=== PATIENT | male | born 1955 | race Caucasian/White ===

== ENCOUNTER 2021-06-25 17:04 | Outpatient (CLI) | payer BC, SELFPAY ==
--- NOTE | ~2021-06-25 | CT_ITS ---
EXAMINATION: CT diagnostic chest w con DATE: 06/25/2021 17:39 INDICATION: Shortness of breath TECHNIQUE: Computed tomography (CT) of the chest was performed with 75 CC Omnipaque 350 intravenous c ontrast. Automated exposure control and iterative reconstruction technique were employed. Exam dose: 234.19 mGy-cm total exam DLP. COMPARISON: None FINDINGS: Heart size is normal. Prominent coronary artery calcifications. No pericardial or pleural e ffusion. Aortic ectasia; the thoracic aortic arch measures 3.0 cm, upper limits of normal. No thoracic aortic dissection is evident. There are extensive increased reticular markings and cystic changes in the peripheral lung zones sugg esting usual interstitial pneumonia interstitial fibrosis. Superimposed interstitial pneumonitis or p neumonia is not excluded. There is mild bilateral hilar and mediastinal lymphadenopathy, likely reactive. There are 2 approximately 1.8 cm ill-defined hypoattenuating masses of the hepatic dome, and approxim ately 3 cm similar lesion of the lateral segment left hepatic lobe, of concern for possible metastase s. Diffuse idiopathic skeletal hyperostosis of the thoracic spine. Mild cupping of the superior vertebra l endplate of T4 consistent with compression fracture, likely old. No suspicious osteolytic or osteob lastic lesions are noted. IMPRESSION: Extensive reticular interstitial infiltrate or fibrosis and cystic changes with peripher al predilection, suggesting usual interstitial pneumonia interstitial fibrosis. Superimposed pneumoni a is not excluded. Recommend clinical correlation Bilateral hilar and mediastinal mild lymphadenopathy; this may be reactive. Differential diagnosis in cludes metastatic disease, lymphoma. 3 ill-defined approximately 1.8-3 cm hypoattenuating hepatic lesions, suggesting possible hepatic met astases Reviewed, dictated and finalized at [facility]. Reviewed, dictated and finalized at [facility]. OPATHIC DOCTOR IMPRESSION: Extensive reticular interstitial infiltrate or fibrosis and cystic changes with peripheral predilection, suggesting usual interstitial pneumonia interstitial fibrosis. Superimposed pneumonia is not excluded. Recommend clinic al correlation Bilateral hilar and mediastinal mild lymphadenopathy; this may be reactive. Dif ferential diagnosis includes metastatic disease, lymphoma. 3 ill-defined approximately 1.8-3 cm hypoattenuating hepatic lesions, suggestin g possible hepatic metastases
[2021-06-25 17:28] LABS: Estimated Glomerular Filt Rate > 60
== END 2021-06-25 17:05 | disposition home or self-care (01) ==
LOC: ANHIMG 17:05
PROVIDERS: PCP Internal Medicine; Visit Provider Nurse Practitioner Family
DX: R06.02 Shortness of breath (principal)
CPT/HCPCS: 71260; Q9967

== ENCOUNTER 2021-07-01 12:52 | Outpatient (CLI) | payer BC, SELFPAY ==
--- NOTE | ~2021-07-01 | CT_ITS ---
EXAMINATION: CT abdomen pelvis wo/w con EXAM DATE: 07/01/2021 13:22 INDICATION: Hepatic lesion. TECHNIQUE: Spiral CT of the abdomen and pelvis was performed without and then with intravenous inject ion of 100 mL Omnipaque 350. Axial, coronal and sagittal images of the abdomen and pelvis were revi ewed. The dose-length product (DLP) for this examination was 1742.26 mGy-cm. The exposure was tailo red according to patient size (auto mA exposure control), and iterative reconstruction (ASIR) was use d as additional dose reduction technique. Correlation is made to chest CT from 06/25/2021. FINDINGS: There are at least 10 peripherally enhancing liver lesions consistent with metastatic disea se, largest the left liver lobe lateral segment measuring 4.3 cm. Mild nonspecific nodularity to the adrenal glands bilaterally, could be hyperplasia, adenomas or possibly early metastatic disease. The spleen, pancreas are unremarkable. Splenule. Small cholelithiasis. Gallbladder otherwise unremarkable . No hydronephrosis. Bilateral renal cysts, larger on the right at 3.4 cm. Prostate and bladder are u nremarkable. No pelvic or retroperitoneal lymphadenopathy. Tiny umbilical fat-containing hernia. Appe ndix, small bowel are unremarkable. There is mild scattered colonic diverticulosis. There is no brody cent inflammatory change to suggest diverticulitis. There is mild abdominal aortic ectasia, moderate scattered arterial sclerosis. The mid abdominal aort a measures 3.6 cm, mildly aneurysmal. The left common iliac artery measures 2.5 cm, and the right david sures 2.3 cm. Extensive bibasilar interlobular septal thickening, probably chronic interstitial lung disease. Heart is normal in size. There is right infrahilar lymphadenopathy. Right 8th rib fracture i s sclerotic laterally. No evidence of prior fracture at this site. Chronic appearing L5 moderate burs t fracture without retropulsion. IMPRESSION: 1. At least 10 liver lesions most likely metastatic disease. 2. Adrenal hyperplasia, adenomas versus early metastatic disease. 3. Right 8th rib sclerosis laterally, suspicious for osteoblastic disease. 4. Extensive basilar intralobular septal thickening probably chronic interstitial lung disease. 5. Right infrahilar lymphadenopathy. 6. Aortoiliac ectasia. 7. Cholelithiasis. 8. Colonic diverticulosis. Reviewed, dictated and finalized at [facility]. IS MENTAL HEALTH THERAPIST IMPRESSION: 1. At least 10 liver lesions most likely metastatic disease. 2. Adrenal hyperplasia, adenomas versus early metastatic disease. 3. Right 8th rib sclerosis laterally, suspicious for osteoblastic disease. 4. Extensive basilar intralobular septal thickening probably chronic interstit ial lung disease. 5. Right infrahilar lymphadenopathy. 6. Aortoiliac ectasia. 7. Cholelithiasis. 8. Colonic diverticulosis.
== END 2021-07-01 12:53 | disposition home or self-care (01) ==
PROVIDERS: PCP Internal Medicine; Visit Provider Student in an Organized Health Care Education/Training Program
DX: K76.9 Liver disease, unspecified (principal); E27.8 Other specified disorders of adrenal gland; M89.9 Disorder of bone, unspecified; R91.8 Other nonspecific abnormal finding of lung field; R59.0 Localized enlarged lymph nodes; I77.819 Aortic ectasia, unspecified site; K80.20 Calculus of gallbladder without cholecystitis without obstruction; K57.90 Diverticulosis of intestine, part unspecified, without perforation or abscess without bleeding
CPT/HCPCS: 74178; Q9967